=== PATIENT | male | born 1985 | race Asian ===

== ENCOUNTER 2016-12-03 10:57 | Emergency (ER) | payer SELFPAY ==
--- NOTE | 2016-12-07 18:43 | ER ---
ADMIT: 12/03/2016 RM/LOC: ER [facility] MR#: [id number] [place], [place] [id number] MAVIS FELIX [address] [place] [address] Emergency Room Report SEX: M AGE: 30 : 1985 DATE: 12/03/2016 This is a 30-year-old male with left shoulder and arm pain for weeks. He says he just released from alf. He has spent in alf from 2003 through 2011. He has had on and off encounters that had put him back into alf, but he just got released about 3 days ago. He is here. PAST MEDICAL HISTORY: He had a broken hip, left in 1999. He is a smoker. He does not tell me that he had been exposed to any trauma or got beat up or anything like that. Simply numbness in his left arm which he cannot explain. He seems very muscular. Used to be construction scheduler. So, I decided to go ahead and do an x-ray which shows some DJD but nothing acute. I was going to report the x-ray report to him and gave him a cock-up splint and instructions, but by the time I did that, he had left the emergency room. He was in the triage room when he was seen initially. CLINICAL IMPRESSION: Left shoulder pain, overuse injury. The patient eloped. LEIDY Dozier / Shiv Manzano MD / nicol JOB #: [id number] CC: Shiv Manzano MD, Attending Physician UNKNOWN, Family Physician
== END 2016-12-03 12:45 | disposition home or self-care (01) ==
LOC: ER 10:57
DX: M25.512 Pain in left shoulder (principal); F17.210 Nicotine dependence, cigarettes, uncomplicated